=== PATIENT | female | born 1980 | race Caucasian/White ===

== ENCOUNTER → 2019-08-22 | Outpatient (CLI) | payer OTHER ==
--- NOTE | 2019-08-22 13:33 | MRI ---
Study: MRI of the Left Knee. Indication: INTERNAL DERANGEMENT OF LEFT KNEE Technique: Multiplanar, multi sequence MRI of the left knee was obtained without intravenous contrast. Comparison: None Findings: ACL, PCL, MCL, and lateral collateral ligament complex intact. Mild scattered degenerative signal change medial meniscus and lateral meniscus without tear. Areas of grade 2 and mild grade 3 chondral thinning medial and lateral knee compartments. Low-grade tendinosis quadriceps tendon insertion. Patellar tendon intact. Patella normally located. Patchy grade 3 and mild grade 4 chondral fibrillation of the patellar apex extending into the medial and lateral facets. Involved area measures approximately 9 mm craniocaudal by 12 mm transverse. Small knee effusion. No acute fracture. Impression: Mild scattered degenerative signal change medial meniscus and lateral meniscus without tear. Grade 2 and mild grade 3 chondral thinning medial and lateral knee compartments. 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 Small knee effusion. Electronically signed by: Marcel Tirado MD 08/22/2019 1:31 PM CDT
== END ==
LOC: MRI 07:09
PROVIDERS: ATTEND Emergency Medicine
DX: M23.92 Unspecified internal derangement of left knee (principal); M94.9 Disorder of cartilage, unspecified; M25.462 Effusion, left knee

== ENCOUNTER → 2019-09-12 | Outpatient (CLI) | payer OTHER ==
--- NOTE | 2019-09-12 08:30 | RAD ---
EXAM DESCRIPTION: Pelvis x-ray single view CLINICAL HISTORY: 39 years Female, HIP PAIN COMPARISON: None. FINDINGS: Sacrum appears intact. Intact bones of the pelvic ring. Cystic changes are seen in the acetabular regions bilaterally. These could be anatomic variance or subchondral cystic changes from cartilage loss. Correlate with MRI findings. No fracture or dislocation. The joint spaces do not appear narrowed. Moderate amount of fecal material in the right colon. No small bowel dilatation to suggest obstruction. The midabdomen in the pelvic region are included on the film. Density in the left ilium is consistent with a large bone island. Small phlebolith in the right pelvis. Otherwise no abnormal calcifications. IMPRESSION: Negative for fracture or dislocation. Electronically signed by: Jarrett Sousa MD 09/12/2019 8:29 AM CDT
--- NOTE | 2019-09-12 08:32 | RAD ---
EXAM DESCRIPTION: Knee x-ray,Left four views CLINICAL HISTORY: 39 years, Female, KNEE PAIN COMPARISON: None TECHNIQUE: Four x-ray views of the left knee, standing FINDINGS: No fracture or dislocation. Small bone island in the medial tibial metaphysis. Bones appear normally mineralized with normal trabecular pattern. Normal appearance of medial and lateral compartments on frontal view. Lateral view shows normal position of the patella. No patellar spurring or enthesopathy. No suprapatellar knee joint effusion. Normal contour of quadriceps and patellar tendons. No abnormal patellar tilt or subluxation on patellar sunrise view. IMPRESSION: Negative for fracture or dislocation. Electronically signed by: Jarrett Sousa MD 09/12/2019 8:31 AM CDT
== END ==
LOC: RAD 08:02
PROVIDERS: ATTEND Orthopaedic Surgery
DX: M25.562 Pain in left knee (principal); M25.552 Pain in left hip

== ENCOUNTER 2020-02-03 07:11 | Emergency (ER) | payer OTHER ==
[2020-02-03] MEDS ORDERED: ALUM & MAG HYDROX-SIMETHICONE 30 ML, LIDOCAINE VISCOUS 2% 15 ML PO ONE ×2 (07:30)
[2020-02-03] MEDS ORDERED: ONDANSETRON ODT 8 MG TAB SL ONE (07:30)
--- NOTE | 2020-02-03 08:13 | RAD ---
One radiograph chest. 2. Radiographs of the Abdomen. Indication: upper abd pain hx gastric bypass Comparison: None. Impression: Cholecystectomy clips. Chain suture in the left upper quadrant. Heart size normal. Lungs clear. No acute osseous abnormality. No free air. Several loops of mildly prominent small bowel left upper quadrant measuring up to 2.8 cm diameter with air-fluid levels. This is nonspecific but could indicate developing/early small bowel obstruction. No abnormal calcifications. Electronically signed by: Marcel Tirado MD 02/03/2020 8:11 AM CDT
[2020-02-03] MEDS ORDERED: HYDROcodone 7.5MG/APAP 325MG 1 EA TAB PO ONE (08:20)
[2020-02-03] MEDS ORDERED: SODIUM CHLORIDE 0.9% 1000ML 1,000 ML IVS ONE (08:20)
--- NOTE | 2020-02-03 09:50 | CT ---
EXAM DESCRIPTION: Abdomen/Pelvis w/Contrast CLINICAL HISTORY: 39 years Female, upper abd pain, hx gastric bypass, TECHNIQUE: This exam was performed according to our departmental dose-optimization program, which includes automated exposure control, adjustment of the mA and/or kV according to patient size and/or use of iterative reconstruction technique. COMPARISON: Same day radiographs FINDINGS: Visualized lung bases are grossly unremarkable. The liver is unremarkable. No suspicious hepatic lesion. No biliary dilatation. Cholecystectomy. Portal vein is patent. The spleen, pancreas and adrenal glands are unremarkable. Symmetric renal parenchymal enhancement. No hydronephrosis. No urolithiasis. Unremarkable bladder. The uterus is anteverted. Right corpus luteum, no follow-up indicated. No suspicious adnexal lesion. Gastric bypass. No evidence of bowel obstruction. No findings to suggest appendicitis. Multifocal enteritis involving several loops of small bowel in the left upper quadrant. Trace physiologic free fluid in pelvis. No focal fluid collection. No free air. No adenopathy. Normal caliber abdominal aorta. No acute or suspicious osseous abnormality. Scattered degenerative changes present. IMPRESSION: Multifocal enteritis. No evidence of bowel obstruction. Electronically signed by: Ricky Chris MD 02/03/2020 9:48 AM CDT
--- NOTE | 2020-02-03 10:07 | ED.PDOC ---
History of Present Illness - General Chief Complaint: GI Problem Stated Complaint: abdominal pain Time Seen by Provider: 02/03/20 07:23 Source: patient Exam Limitations: no limitations - History of Present Illness Initial Comments: The patient is a 39-year-old female presented emergency room secondary to epigastric pain radiating to her back that started yesterday evening. She has had very poor sleep since that time. The patient has had a history of a gastric bypass in the past. No vomiting. Mild queasiness. No diarrhea. No fever. No trauma. No bruising. No history of pancreatitis. No history of significant ulcers. She has not been taking anti-inflammatories. Timing/Duration: 24 hours Severity: moderate Improving Factors: nothing Worsening Factors: nothing Associated Symptoms: loss of appetite, malaise Allergies/Adverse Reactions: Allergies Penicillins Allergy (Verified 02/03/20 07:25) Home Medications: Ambulatory Orders Ondansetron Odt [Zofran ODT] 4 mg PO Q8HR PRN #5 tab 02/03/20 Sucralfate Tab [Carafate Tab] 1 gm PO QID #120 tab 02/03/20 Tramadol HCl 50 mg PO Q8HR PRN #20 tab 02/03/20 Review of Systems - Review of Systems Constitutional: States: malaise EENTM: States: no symptoms reported Respiratory: States: no symptoms reported Cardiology: States: no symptoms reported Gastrointestinal/Abdominal: States: abdominal pain, nausea Genitourinary: States: no symptoms reported Musculoskeletal: States: no symptoms reported Skin: States: no symptoms reported Neurological: States: no symptoms reported Endocrine: States: no symptoms reported All other Systems: No Change from Baseline Past Medical History (General) - Patient Medical History Hx Seizures: No Hx Asthma: No Hx Cardiac Disorders: No Hx Diabetes: No Hx Gastroesophageal Reflux: Yes - ulcers Surgical History: cholecystectomy, other - Social History Hx Tobacco Use: Yes Family Medical History - Family History Mother Family History: No Known Physical Exam - Physical Exam General Appearance: Alert, Comfortable, No apparent distress Eye Exam: bilateral normal Ears, Nose, Throat: hearing grossly normal, normal pharynx Neck: full range of motion, supple Respiratory: lungs clear, normal breath sounds, no respiratory distress, no accessory muscle use Cardiovascular/Chest: normal peripheral pulses, regular rate, rhythm, no edema Peripheral Pulses: radial,right: 2+, radial,left: 2+ Gastrointestinal/Abdominal: soft, other - Epigastric discomfort to palpation. Mild voluntary guarding. Scarring noted from previous surgery. Otherwise no obvious palpable mass. 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 Laboratory work is reassuring. No significant leukocytosis. Given the patient's history of the gastric bypass we will have her increase her famotidine and omeprazole to twice daily. I will also write her for additional Carafate to take 4 times daily for the next 2 weeks at least. She will be written for Zofran for as needed use in case of any nausea or vomiting. She also be written for some Tylenol 3 to control pain. She does need to follow back up with her primary care doctor later in the week. [place] diet is recommended. Keep well-hydrated. 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 ER warnings are given. finesse bergeron [id number] 02/03/20 10:12 [facility]aware consulted - Results/Orders Results/Orders: Acute abdominal series shows a few small dilated loops of small bowel. CT scan of abdomen pelvis with IV and p.o. contrast shows multifocal mild enteritis of several small loops of small bowel in the left upper quadrant. See report for full details. No obstruction. Laboratory Results - last 24 hr 02/03/20 02/03/20 02/03/20 07:25 07:25 07:37 WBC RBC Hgb Hct MCV MCH MCHC RDW Plt Count MPV Absolute Neuts (auto) Absolute Lymphs (auto) Absolute Monos (auto) Absolute Eos (auto) Absolute Basos (auto) Neutrophils % Lymphocytes % Monocytes % Eosinophils % Basophils % Sodium 135 Potassium 3.7 Chloride 100 L Carbon Dioxide 25 Anion Gap 13.7 BUN 9 Creatinine 0.72 BUN/Creatinine Ratio 12.5 Random Glucose 101 Serum Osmolality 268.9 L Lactic Acid Calcium 8.8 Magnesium 1.7 L Total Bilirubin 1.3 H AST 22 ALT 15 Alkaline Phosphatase 79 Creatine Kinase 46 CK-MB (CK-2) 0.7 CK-MB (CK-2) % Not Reportable Troponin I < 0.02 Serum Total Protein 7.0 Albumin 4.0 Globulin 3.0 Albumin/Globulin Ratio 1.3 Amylase 49 Lipase 31 Urine Color Yellow Urine Appearance Clear Urine pH 7.0 Ur Specific [place] 1.015 Urine Protein 30 Urine Glucose (UA) Negative Urine Ketones Trace Urine Blood Negative Urine Nitrite Negative Urine Bilirubin Small H Urine Urobilinogen 2.0 H Ur Leukocyte Esterase Negative Urine RBC 1-3 Urine WBC 0-1 Ur Epithelial Cells 5-10 Amorphous Sediment 1+ Urine Bacteria Rare Urine HCG, Qual Negative 02/03/20 02/03/20 07:37 07:37 WBC 7.4 RBC 4.86 Hgb 14.4 Hct 42.9 MCV 88.2 MCH 29.6 MCHC 33.6 RDW 16.3 H Plt Count 199 MPV 8.2 Absolute Neuts (auto) 5.20 Absolute Lymphs (auto) 1.30 Absolute Monos (auto) 0.80 Absolute Eos (auto) 0.10 Absolute Basos (auto) 0.10 Neutrophils % 69.9 Lymphocytes % 17.4 L Monocytes % 10.5 H Eosinophils % 1.4 Basophils % 0.8 Sodium Potassium Chloride Carbon Dioxide Anion Gap BUN Creatinine BUN/Creatinine Ratio Random Glucose Serum Osmolality Lactic Acid 1.0 Calcium Magnesium Total Bilirubin AST ALT Alkaline Phosphatase Creatine Kinase CK-MB (CK-2) CK-MB (CK-2) % Troponin I Serum Total Protein Albumin Globulin Albumin/Globulin Ratio Amylase Lipase Urine Color Urine Appearance Urine pH Ur Specific [place] Urine Protein Urine Glucose (UA) Urine Ketones Urine Blood Urine Nitrite Urine Bilirubin Urine Urobilinogen Ur Leukocyte Esterase Urine RBC Urine WBC Ur Epithelial Cells Amorphous Sediment Urine Bacteria Urine HCG, Qual Departure - Departure Clinical Impression: Gastroenteritis Disposition: Discharge to Home or Self Care Condition: Fair Departure Forms: ED Discharge - Pt. Copy, Patient Portal Self Enrollment Diet: bland diet Activity: increase activity as tolerated Prescriptions: Tramadol HCl 50 mg PO Q8HR PRN #20 tab PRN Reason: Moderate Pain Ondansetron Odt [Zofran ODT] 4 mg PO Q8HR PRN #5 tab PRN Reason: Nausea--Moderate Sucralfate Tab [Carafate Tab] 1 gm PO QID #120 tab Home Medications: Ambulatory Orders Ondansetron Odt [Zofran ODT] 4 mg PO Q8HR PRN #5 tab 02/03/20 Sucralfate Tab [Carafate Tab] 1 gm PO QID #120 tab 02/03/20 Tramadol HCl 50 mg PO Q8HR PRN #20 tab 02/03/20 Additional Instructions: The patient is a 39-year-old female presented emergency room with what appears to be multifocal enteritis of the small bowel. Laboratory work is reassuring. No significant leukocytosis. Given the patient's history of the gastric bypass we will have her increase her famotidine and omeprazole to twice daily. I will also write her for additional Carafate to take 4 times daily for the next 2 weeks at least. She will be written for Zofran for as needed use in case of any nausea or vomiting. She also be written for some Tylenol 3 to control pain. She does need to follow back up with her primary care doctor later in the week. [place] diet is recommended. Keep well-hydrated. 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 ER warnings are given.
[2020-02-03 10:25] VITALS: BP 152/79; TEMP 97.5; O2SAT 97
== END 2020-02-03 10:24 | disposition home or self-care (01) ==
LOC: ER 07:11
DX: K52.9 Noninfective gastroenteritis and colitis, unspecified (principal); Z87.11 Personal history of peptic ulcer disease; Z98.84 Bariatric surgery status; Z90.49 Acquired absence of other specified parts of digestive tract; Z79.899 Other long term (current) drug therapy; Z88.0 Allergy status to penicillin
CPT/HCPCS: 36415; 74019; 74177; 80053; 81001; 81025; 82150; 82550; 82553; 83605; 83690; 83735; 84484; 85025; J7030

== ENCOUNTER 2020-03-30 22:48 | Emergency (ER) | payer OTHER ==
--- NOTE | 2020-03-30 22:59 | ED.PDOC ---
History of Present Illness - General Chief Complaint: Upper Extremity Injury Stated Complaint: punch wall right hand pain Time Seen by Provider: 03/30/20 22:58 Source: patient - History of Present Illness Initial Comments: 39-year-old female who presents with chief complaint of right hand pain following injury just prior to arrival. Patient states that she has history of PTSD and became frustrated so she punched a wall with the right hand. Since then she reports constant sharp/throbbing pain to the dorsomedial aspect of the right hand, radiates into the fingers, constant, 8/10 severity, worse with palpation and with closing the right hand. She has not taken any medication for relief. Denies any weakness or numbness or deformity. She does report slight bruising and abrasion injuries to that hand. Reports her last tetanus shot was 2 years ago. No other acute injuries reported. Denies wrist pain. Allergies/Adverse Reactions: Allergies NSAIDs Allergy (Verified 03/30/20 23:08) Penicillins Allergy (Verified 03/30/20 23:08) Home Medications: Ambulatory Orders Amphetamine-Dextroamphetamine [Amphetamine/Dextroampheta 10 mg] 1 tab PO BID 02/03/20 Famotidine 20 mg PO DAILY 02/03/20 Ondansetron Odt [Zofran ODT] 4 mg PO Q8HR PRN #5 tab 02/03/20 Pantoprazole Sodium 40 mg PO DAILY 02/03/20 Sucralfate Tab [Carafate Tab] 1 gm PO QID #120 tab 02/03/20 Tramadol HCl 50 mg PO Q8HR PRN #20 tab 02/03/20 Review of Systems - Review of Systems Review of Systems: 03/30/20 23:48 as per HPI All other Systems: Reviewed and Negative Past Medical History (General) - Patient Medical History Hx Seizures: No Hx Asthma: No Hx Cardiac Disorders: No Hx Diabetes: No Hx Gastroesophageal Reflux: Yes - ulcers - Social History Hx Tobacco Use: Yes Family Medical History - Family History Mother Family History: No Known Physical Exam - Physical Exam General Appearance: Alert, No apparent distress Eyes, Ears, Nose, Throat Exam: normal ENT inspection Neck: non-tender, full range of motion, supple, normal inspection Cardiovascular/Respiratory: regular rate, rhythm, no M/R/G, normal peripheral pulses, no JVD, normal breath sounds, no respiratory distress Abdominal Exam: non-tender, no organomegaly Back Exam: normal inspection Shoulder Exam: normal inspection Elbow/Forearm Exam: normal inspection Wrist Exam: normal inspection, non-tender, no evidence of injury Hand Exam: bone tenderness - Right hand with several scattered superficial small abrasions to the dorsal aspect and knuckles. There is mild bruising to the dorsal medial aspect of the right hand. No noted swelling or deformity. Patient reports marked TTP to the dorsomedial aspect of the hand, limited ROM - Limited on full disclosure due to pain. Strength and sensation appears intact throughout. Good cap refill noted throughout Neuro/Tendon: normal sensation, normal motor functions, normal tendon functions Mental Status: alert, oriented x 3 Skin Exam: normal color Progress - Progress Progress: 03/30/20 23:10 Acute right hand pain -Consider hand fracture, contusion, strain/sprain, other -Obtain x-ray imaging of the right hand -Tylenol 1000 mg p.o. and cold compress for pain 03/30/20 23:50 -X-ray imaging of the right hand reveals no acute processes. Discussed findings with patient as well as diagnosis of right hand contusion. She remained stable. Will apply wrist/hand splint and Mendel wrap to the affected area to help with compression and immobilization. Advised to discontinue splint as soon as possible and to continue working on range of motion exercises right away in order to prevent stiffness. -Discharged home in good condition, return warnings discussed Brenden Sarmiento MD Billing #[id number] Departure - Departure Clinical Impression: Contusion of hand, right Qualifiers: Encounter type: initial encounter Qualified Code(s): S60.221A - Contusion of right hand, initial encounter Time of Disposition: 23:45 Disposition: Discharge to Home or Self Care Condition: Good Departure Forms: ED Discharge - Pt. Copy, Patient Portal Self Enrollment Instructions: DI for Arm Pain, Contusion (DC) Diet: resume usual diet Activity: increase activity as tolerated Home Medications: Ambulatory Orders Amphetamine-Dextroamphetamine [Amphetamine/Dextroampheta 10 mg] 1 tab PO BID 02/03/20 Famotidine 20 mg PO DAILY 02/03/20 Ondansetron Odt [Zofran ODT] 4 mg PO Q8HR PRN #5 tab 02/03/20 Pantoprazole Sodium 40 mg PO DAILY 02/03/20 Sucralfate Tab [Carafate Tab] 1 gm PO QID #120 tab 02/03/20 Tramadol HCl 50 mg PO Q8HR PRN #20 tab 02/03/20 Additional Instructions: For pain control continue to apply a cold pack to the affected area for 15 to 20 minutes every 1-2 hours for the next 2 to 3 days to help limit pain and swelling. You may also keep the right hand elevated to help limit swelling and keep the area wrapped with compression dressing to help limit swelling. Continue take [id number] medications as needed for pain and inflammation such as Tylenol 650 mg every 6 hours as needed. Follow-up with your primary care doctor is recommended in the next 1 to 2 weeks for repeat evaluation or sooner as needed.
--- NOTE | 2020-03-30 23:22 | RAD ---
EXAM DESCRIPTION: Hand,Right 3 Views RadLex: XR HAND 3 OR MORE VIEWS Views: 3 CLINICAL HISTORY: punched wall, R hand pain; COMPARISON: None. FINDINGS: The osseous structures all appear intact.. The joint spaces appear unremarkable. There is no evidence for bony erosion or destruction. The soft tissues are normal. There is no foreign body. IMPRESSION: 1. No acute findings. Electronically signed by: Maggy Rivas MD 03/30/2020 11:20 PM CDT
[2020-03-30] MEDS ORDERED: ACETAMINOPHEN 500 MG TAB PO ONE (23:44)
[2020-03-30 23:53] VITALS: BP 144/98; TEMP 97.2; O2SAT 100
== END 2020-03-31 00:01 | disposition home or self-care (01) ==
LOC: ER 22:48
DX: S60.221A Contusion of right hand, initial encounter (principal); K21.9 Gastro-esophageal reflux disease without esophagitis; F17.200 Nicotine dependence, unspecified, uncomplicated; F43.10 Post-traumatic stress disorder, unspecified; W22.01XA Walked into wall, initial encounter; Y92.9 Unspecified place or not applicable